=== PATIENT | female | born 1955 | race Caucasian/White ===

== ENCOUNTER 2018-01-19 10:16 | Emergency (ER) | payer OTHER ==
[2018-01-19 10:34] VITALS: BP 141/73
--- NOTE | 2018-01-19 12:35 | ED Physician Documentation ---
PD HPI HEAD INJURY - Stated complaint Stated Complaint: HEAD INJURY - Chief complaint Chief Complaint: Neuro - History obtained from History obtained from: Patient - History of Present Illness Where head injury occurred: Home Timing - onset: How many days ago (4) Pain level max: 6 Pain level now: 3 Location of injury: Left, Front Quality of pain: Pain, Aching, Dull Associated symptoms: Nausea / vomiting (nausea no vomiting). No: LOC, AMS, Amnesia Symptoms improve with: Rest Symptoms worsen with: Movement Contributing factors: No: Anticoagulated, Intoxicated Similar symptoms before: Has not had sx before Recently seen: Not recently seen - Additional information Additional information: Patient is a 62-year-old female who takes no medications at home who stood up and hit her head on a beam in the attic 4 days ago. Since that time she has had increasing headaches, nausea and lightheadedness. She states that it seems to be worse every day since that the injury occurred. Review of Systems Constitutional: denies: Fever, Chills Ears: denies: Ear pain Nose: denies: Rhinorrhea / runny nose, Congestion Throat: denies: Sore throat Cardiac: denies: Chest pain / pressure Respiratory: denies: Cough GI: denies: Nausea, Vomiting, Diarrhea Skin: denies: Rash Musculoskeletal: denies: Neck pain, Back pain Neurologic: denies: Headache PD PAST MEDICAL HISTORY - Past Medical History Past Medical History: No - Past Surgical History Past Surgical History: No - Present Medications Home Medications: Ambulatory Orders Medication Instructions Recorded Confirmed No Known Home Medications 01/19/18 01/19/18 - Allergies Allergies/Adverse Reactions: Allergies Allergy/AdvReac Type Severity Reaction Status Date / Time No Known Drug Allergies Allergy Verified 01/19/18 10:34 - Living Situation Living Situation: reports: With family Living Arrangement: reports: At home - Social History Does the pt have substance abuse?: No - Family History Family history: reports: Non contributory PD ED PE NORMAL - Vitals Vital signs reviewed: Yes - General General: Alert and oriented X 3, No acute distress, Well developed/nourished - HEENT HEENT: Atraumatic, PERRL, EOMI, Ears normal, Moist mucous membranes, Pharynx benign - Neck Neck: Supple, no meningeal sign, No bony TTP - Cardiac Cardiac: RRR - Respiratory Respiratory: No respiratory distress, Clear bilaterally - Abdomen Abdomen: Soft, Non tender, Non distended - Back Back: No spinal TTP - Derm Derm: Warm and dry - Extremities Extremities: Normal ROM s pain - Neuro Neuro: Alert and oriented X 3, business intern 2-12 intact, No motor deficit, No sensory deficit, Normal speech Eye Opening: Spontaneous Motor: Obeys Commands Verbal: Oriented GCS Score: 15 - Psych Psych: Normal mood, Normal affect Results - Vitals Vitals: Vital Signs - 24 hr 01/19/18 10:30 Temperature 35.8 C L Heart Rate 69 Respiratory 15 Rate Blood Pressure 141/73 H O2 Saturation 99 Oxygen O2 Source Room air - Rads (name of study) head Ct Radiology: Prelim report reviewed, EMP read contemporaneously, See rad report (No acute intracranial abnormality) PD MEDICAL DECISION MAKING - ED course Complexity details: reviewed results, re-evaluated patient, considered differential, d/w patient ED course: Patient is a 62-year-old female who struck her head on a beam in her attic several days ago, worsening symptoms since that time. As her symptoms are progressively worsening, head CT performed which is negative. Will continue supportive care for a closed head injury and follow-up closely with her doctor. No seizures or vomiting at this time patient counseled regarding signs and symptoms for which I believe and urgent re-evaluation would be necessary. Patient with good understanding of and agreement to plan and is comfortable going home at this time This document was made in part using voice recognition software. While efforts are made to proofread this document, sound alike and grammatical errors may occur. Departure - Departure Disposition: 01 Home, Self Care Clinical Impression: Head injury Qualifiers: Encounter type: initial encounter Qualified Code(s): S09.90XA - Unspecified injury of head, initial encounter Condition: Good Instructions: ED Head Injury Closed Follow-Up: your,doctor in 1 week for recheck [Other] Comments: Your CT scan is normal today. Return if you worsen. You should not drive or operate heavy machinery while you are feeling dizzy and having headaches. Follow-up with your doctor next week for repeat evaluation. Discharge Date/Time: 01/19/18 13:05
--- NOTE | 2018-01-19 13:05 | CT Report ---
Reason: head injury 3 days ago, nausea Procedure Date: 01/19/2018 Accession Number: [id number] / [id number] Procedure: CT - Head W/O CPT Code: FULL RESULT: EXAM: CT HEAD EXAM DATE: 01/19/2018 12:46 PM. CLINICAL HISTORY: Head injury 3 days ago, nausea. COMPARISON: None. TECHNIQUE: Multiaxial CT images were obtained from the foramen magnum to the vertex. Reformats: Sagittal and coronal. IV contrast: None. In accordance with CT protocol optimization, one or more of the following dose reduction techniques were utilized for this exam: automated exposure control, adjustment of mA and/or KV based on patient size, or use of iterative reconstructive technique. FINDINGS: Parenchyma: No intraparenchymal hemorrhage. No evidence of mass, midline shift, or CT findings of infarction. Reyes-white differentiation is distinct. Extraaxial Spaces: Normal for age. No subdural or epidural collections identified. Ventricles: Normal in size and position. Sinuses and Orbits: Imaged paranasal sinuses, orbits, and mastoids show no significant abnormality. Bones: No evidence of fracture or calvarial defect. Other: None. IMPRESSION: No acute intracranial abnormality. RADIA
== END 2018-01-19 13:05 | disposition home or self-care (01) ==
LOC: ED 10:16
DX: S09.90XA Unspecified injury of head, initial encounter (principal); W22.09XA Striking against other stationary object, initial encounter; Y92.008 Other place in unspecified non-institutional (private) residence as the place of occurrence of the external cause
CPT/HCPCS: 70450; 99283

== ENCOUNTER 2019-04-06 14:12 | Outpatient (CLI) | payer MEDICARE ==
--- NOTE | 2019-04-06 15:54 | Ultrasound Report ---
Reason: ABNL FINDING ON EXAMINATION OF THYROID GLAND Procedure Date: 04/06/2019 Accession Number: [id number] / [id number] Procedure: US - Head or Neck Soft Tissue CPT Code: Final Report FULL RESULT: EXAM: THYROID ULTRASOUND EXAM DATE: 04/06/2019 03:16 PM. CLINICAL HISTORY: ABNL FINDING ON EXAMINATION OF THYROID GLAND. COMPARISON: None. TECHNIQUE: Real time sonographic imaging of the thyroid was performed by the med asst. Multiple billing customer service representative static images were saved for review. FINDINGS: THYROID GLAND: Right Lobe: 4.7 x 1.1 x 1.4 cm, volume 3.8 cc. Heterogeneous Right Lobe Nodules: 1. Superior pole heterogeneous 0.5 x 0.4 x 0.6 cm noncalcified nodule. 2. Inferior pole echogenic 0.6 x 0.4 x 0.4 cm noncalcified nodule. Multiple small cysts Left Lobe: 4.9 x 1.7 x 1.3 cm, volume 5.6 cc. Heterogeneous Left Lobe Nodules: 1. Mid pole 0.4 x 0.2 x 0.2 cyst. 2. Mid heterogeneous 0.7 x 0.4 x 0.8 cm noncalcified nodule. 3. Lower pole hypoechoic 0.4 x 0.3 x 0.4 cm noncalcified nodule Other small cysts. Isthmus: 0.26 cm AP. Isthmic Nodules: None. LYMPH NODES: No adenopathy demonstrated in the central or lateral compartment. OTHER: None. IMPRESSION: 1. Bilateral small nodules largest 8 mm left lobe. Follow-up can be in 12-24 months Management recommendations are based on 2015 [place] [employer] Management Guidelines for Adult Patients with Thyroid Nodules and Differentiated Thyroid Cancer. RADIA
--- NOTE | 2019-04-07 09:01 | DEXA Report ---
Reason: OSTEOPOROSIS SCREENING Procedure Date: 04/06/2019 Accession Number: [id number] / [id number] Procedure: DEX - Dexa Spine and/or Hip CPT Code: Final Report FULL RESULT: EXAM: Dexa Spine and/or Hip DATE: 04/06/2019 2:40 PM CLINICAL HISTORY: OSTEOPOROSIS SCREENING TECHNIQUE: Dual energy x-ray absorptiometry (DXA) was performed on a MMIS System. Regions measured are the AP Spine, femoral neck, and if needed forearm. COMPARISON: None. In accordance with the International Society for Clinical Densitometry (ISCD) guidelines, data from previous exams may be reanalyzed using current recommendations and techniques. This is done to allow a more accurate basis for comparison with the current study. FINDINGS: The data for the lumbar spine is as follows: BMD (g/cm/cm) T-SCORE Z-SCORE REGION L1 1.158 0.2 2.0 L2 1.185 -0.1 1.6 L3 1.312 0.9 2.7 L4 1.298 0.8 2.6 TOTAL 1.243 0.5 2.3 NOTE: All evaluable vertebrae are used for classification The data for the hip is as follows: BMD (g/cm/cm) T-SCORE Z-SCORE REGION Neck 0.909 -0.9 0.6 TOTAL 0.956 -0.4 0.9 NOTE: The femoral neck or total proximal femur, whichever is lowest, is used for classification. IMPRESSION: THE WHO CLASSIFICATION BASED ON THE INTERNATIONAL REFERENCE STANDARD IS NORMAL. THE FRACTURE RISK IS NOT INCREASED. RECOMMENDATION: Patients with diagnosis of osteoporosis or osteopenia should have regular bone mineral density assessment. For those eligible for Medicare, routine testing is allowed once every 2 years. Testing frequency can be increased for patients who have rapidly progressing disease or for those who are receiving medical therapy to restore bone mass. COMMENT: World Health Organization (WHO) definitions for osteoporosis and osteopenia: NORMAL BMD: T-score at -1.0 or higher, fracture risk is low OSTEOPENIA BMD: T-score between -1.0 and -2.5, fracture risk is increased. OSTEOPOROSIS BMD: T-score at -2.5 or lower, fracture risk is high. National Osteoporosis Foundation recommends: 1. Obtain adequate dietary calcium (at least 1200 mg per day) and vitamin D (400-800 international units per day). 2. Participate, as appropriate, in regular weightbearing and muscle-strengthening exercise. 3. Avoid tobacco use and reduce alcohol and caffeine intake. 4. For more detailed information see the website at www.NOF.org.
== END 2019-04-06 14:13 | disposition home or self-care (01) ==
LOC: DI 14:12
PROVIDERS: ATTEND Internal Medicine
DX: Z78.0 Asymptomatic menopausal state (principal); E04.2 Nontoxic multinodular goiter
CPT/HCPCS: 76536; 77080

== ENCOUNTER 2019-04-07 08:29 | Outpatient (CLI) | payer MEDICARE ==
[2019-04-07 08:55] LABS: EOSINOPHILS # (AUTO) 0.1 10^3/uL (0.0-0.7); EOSINOPHILS % (AUTO) 2.2 %; HGB - HEMOGLOBIN 15.3 g/dL (12.0-16.0); LYMPHOCYTES # (AUTO) 1.7 10^3/uL (1.5-3.5); LYMPHOCYTES % (AUTO) 41.5 %; MEAN CORPUSCULAR HGB CONC 33.7 g/dL (32.0-36.0); MEAN CORPUSCULAR VOLUME 91.9 fL (81.0-99.0); MEAN PLATELET VOLUME 9.3 fL (7.9-10.8); MONOCYTES # (AUTO) 0.3 10^3/uL (0.0-1.0); NEUTROPHILS # (AUTO) 1.9 10^3/uL (1.5-6.6); NEUTROPHILS % (AUTO) 47.1 %; PLT - PLATELET COUNT 192 10^3/uL (130-450); RED BLOOD COUNT 4.94 10^6/uL (4.20-5.40); WHITE BLOOD COUNT 4.1 x10^3/uL (4.8-10.8)
[2019-04-07 09:09] LABS: HB2 TOTAL 15.2 g/dL; HEMOGLOBIN A1C 0.69 g/dL; HEMOGLOBIN A1C % 6.3 % (4.6-6.2)
[2019-04-07 09:44] LABS: ALBUMIN 4.4 g/dL (3.2-5.5); ALBUMIN/GLOBULIN RATIO 1.5 (1.0-2.2); ALKALINE PHOSPHATASE 57 IU/L (42-121); ALT ALANINE AMINOTRANSFERASE 56 IU/L (10-60); AST ASPARTATE AMINOTRANSFERASE 34 IU/L (10-42); BILIRUBIN,TOTAL 0.9 mg/dL (0.2-1.0); BUN - BLOOD UREA NITROGEN 16 mg/dL (6-20); CALCIUM 9.1 mg/dL (8.5-10.3); CARBON DIOXIDE - CO2 29 mmol/L (21-32); CHLORIDE 101 mmol/L (101-111); CHOL/HDL RATIO 3.9 (<4.4); CHOLESTEROL 287 mg/dL; CREATININE 0.8 mg/dL (0.4-1.0); CRP - C-REACTIVE PROTEIN < 1.0 mg/dL (0-1.0); GAMMA GLUTAMYL TRANSPEPTIDASE 41 IU/L (8-38); GFR - MDRD 72 (>89); GLUCOSE 125 mg/dL (70-100); HDL CHOLESTEROL 73 mg/dL; LDL CHOLESTEROL,CALCULATED 197 mg/dL; LDL/HDL RATIO 2.7 (<4.4); SODIUM 139 mmol/L (135-145); TOTAL PROTEIN 7.3 g/dL (6.7-8.2); VLDL CHOLESTEROL 17 mg/dL
[2019-04-07 09:49] LABS: BILIRUBIN,URINE NEGATIVE (NEGATIVE); GLUCOSE, URINE (UA) NEGATIVE (NEGATIVE); KETONES,URINE (UA) NEGATIVE (NEGATIVE); LEUKOCYTE ESTERASE, URINE NEGATIVE (NEGATIVE); NITRITE,URINE NEGATIVE (NEGATIVE); OCCULT BLOOD,URINE TRACE-INTA (NEGATIVE); PH,URINE 5.5 PH (5.0-7.5); PROTEIN,URINE NEGATIVE (NEGATIVE); UROBILINOGEN,URINE 0.2 (NORMAL) E.U./dL (NORMAL)
[2019-04-07 09:50] LABS: CLARITY,URINE CLEAR (CLEAR)
[2019-04-07 09:52] LABS: T4 (THYROXINE) 5.39 ug/dL (6.09-12.23)
[2019-04-07 10:00] LABS: BACTERIA,URINE Rare /HPF (None Seen); RBC,URINE 0-5 /HPF (0-5); SQUAMOUS EPITHELIAL CELL,UR RARE Squamous (<= Few)
[2019-04-07 10:02] LABS: TOTAL T3 1.14 ng/mL (0.87-1.78)
== END 2019-04-07 08:30 | disposition home or self-care (01) ==
LOC: LAB 08:29
PROVIDERS: ATTEND Internal Medicine
DX: Z13.220 Encounter for screening for lipoid disorders (principal); R10.84 Generalized abdominal pain; R74.0 Nonspecific elevation of levels of transaminase and lactic acid dehydrogenase [LDH]; R11.0 Nausea; R53.82 Chronic fatigue, unspecified; R73.9 Hyperglycemia, unspecified
CPT/HCPCS: 36415; 80053; 80061; 81001; 81599; 82977; 83036; 83516; 83721; 84436; 84443; 84480; 85025; 85651; 86140; 86376

== ENCOUNTER 2020-12-03 08:14 | Outpatient (CLI) | payer MEDICARE | END 2020-12-03 08:15 | disposition home or self-care (01) | LOC: LAB 08:14 | PROVIDERS: ATTEND Internal Medicine Cardiovascular Disease | DX: R07.81 Pleurodynia (principal) | CPT/HCPCS: 36415; 85651; 86140 ==

== ENCOUNTER 2021-04-01 10:45 | Outpatient (CLI) | payer OTHER ==
--- NOTE | 2021-04-01 12:48 | CT Report ---
PROCEDURE: CHEST WO INDICATIONS: COUGH TECHNIQUE: Noncontrast 1mm axial images were acquired from the pulmonary apices to the posterior costophrenic an gles. Axial 5 mm soft tissue kernel reconstructions were performed as well as 8 mm axial MIP and cor onal and sagittal 5 mm reformations. For radiation dose reduction, the following was used: automate d exposure control, adjustment of mA and/or kV according to patient size. COMPARISON: None. FINDINGS: Image quality: Excellent. Lungs and pleura: No acute air space opacities. Scattered areas of mild bronchial wall thickening ar e seen throughout both lungs without significant bronchiectasis. No pleural effusions or pneumothorax . Central and peripheral airways are patent and normal in caliber. Mediastinum: Heart size is normal. No pericardial effusion. No mediastinal adenopathy by size crit eria. Thoracic aorta and central pulmonary arteries are normal in size. Esophagus is normal in marcus saravanan. No hiatal hernia. Bones and chest wall: No suspicious bony lesions. No vertebral body compression fractures. No axil chevy or supraclavicular adenopathy by size criteria. The thyroid is normal in size. Abdomen: Visualized upper abdominal solid organs and bowel loops appear normal in the absence of con trast. IMPRESSION: Scattered mild areas of bronchial wall thickening are nonspecific secondary to acute or chronic infec tious or inflammatory processes or reactive airways disease. No acute consolidation. Reviewed by: Paulo Garza MD on 04/01/2021 12:47 PM PST Approved by: Paulo Garza MD on 04/01/2021 12:47 PM PST Station ID: [id number]
== END 2021-04-01 10:46 | disposition home or self-care (01) ==
LOC: DI 10:45
PROVIDERS: ATTEND Internal Medicine Pulmonary Disease
DX: R05.9 Cough, unspecified (principal); J98.09 Other diseases of bronchus, not elsewhere classified

== ENCOUNTER 2021-07-06 18:08 | Emergency (ER) | payer MEDICARE, OTHER ==
[2021-07-06 18:17] VITALS: BP 147/71
--- NOTE | 2021-07-06 18:51 | XRAY Report ---
PROCEDURE: Ankle 3 View RT INDICATIONS: PAIN/TENDERNESS/SWELLING R ANKLE TECHNIQUE: 3 views of the ankle were acquired. COMPARISON: None. FINDINGS: BONES: Faint calcific density is seen distal to the lateral malleolus, concerning for small avulsion fracture. An additional calcific densities seen distal to the medial malleolus, compatible with salome te injury. The ankle mortise is maintained on these nonstressed views. SOFT TISSUES: Lateral soft tissue swelling. IMPRESSION: 1.Suggestion of lateral malleolus avulsion injury with soft tissue edema. Reviewed by: Robert Noble MD on 07/06/2021 6:49 PM PDT Approved by: Robert Noble MD on 07/06/2021 6:49 PM PDT Station ID: [id number]
--- NOTE | 2021-07-06 19:29 | XRAY Report ---
PROCEDURE: Foot 3 View RT INDICATIONS: fall, foot pain TECHNIQUE: 3 views of the foot were acquired. COMPARISON: None. FINDINGS: BONES: No acute, displaced fracture or dislocation. Mild osteophytosis about the first MTP. SOFT TISSUES: No focal abnormality. IMPRESSION: 1.No acute osseous abnormality. Reviewed by: Robert Noble MD on 07/06/2021 7:28 PM PDT Approved by: Robert Noble MD on 07/06/2021 7:28 PM PDT Station ID: [id number]
--- NOTE | 2021-07-06 19:31 | ED Physician Documentation ---
History of Present Illness - Stated complaint Stated Complaint: FALL,ANKLE PX - Chief complaint Chief Complaint: Ext Problem - History obtained from History obtained from: Patient, Family - History of Present Illness Timing: Today Pain level max: 6 Pain level now: 3 - Additonal information Additional information: Patient is a 66-year-old female who presents to the emergency department with a right ankle injury after walking on the beach today. She states that she slipped and fell off of logs. Occurred about an hour prior to arrival. Has swelling to the right lateral ankle. Worse with walking, better with rest. Patient states that she also fell and injured her tailbone. She states that pain is mild. Most of the pain is in the right ankle. No head, neck, back pain. Does not take any blood thinners. Review of Systems Constitutional: denies: Fever, Chills GI: denies: Vomiting, Diarrhea Skin: denies: Rash Musculoskeletal: denies: Neck pain, Back pain Neurologic: denies: Focal weakness, Numbness, Seizure, Confused, Headache, Head injury, LOC PD PAST MEDICAL HISTORY - Past Medical History Past Medical History: No - Past Surgical History Past Surgical History: No - Present Medications Home Medications: Ambulatory Orders Medication Instructions Recorded Confirmed No Known Home Medications 01/19/18 07/06/21 - Allergies Allergies/Adverse Reactions: Allergies Allergy/AdvReac Type Severity Reaction Status Date / Time No Known Drug Allergies Allergy Verified 07/06/21 18:17 - Social History Does the pt smoke?: No Smoking Status: Never smoker Does the pt drink ETOH?: Yes ETOH Use: Wine Does the pt have substance abuse?: No - Immunizations Immunizations are current?: Yes - POLST Patient has POLST: No PD ED PE NORMAL - Vitals Vital signs reviewed: Yes - General General: Alert and oriented X 3, No acute distress - HEENT HEENT: Atraumatic, PERRL, Moist mucous membranes - Neck Neck: Supple, no meningeal sign, No bony TTP - Cardiac Cardiac: RRR - Respiratory Respiratory: No respiratory distress, Clear bilaterally - Back Back: No spinal TTP - Derm Derm: Warm and dry - Extremities Extremities: Other (Soft tissue swelling and ecchymosis to the lateral aspect of the right ankle, tenderness to palpation over the right lateral malleolus. Mild swelling near the base of the fifth metatarsal as well. NVI) - Neuro Neuro: Alert and oriented X 3 - Psych Psych: Normal mood, Normal affect Results - Vitals Vitals: Vital Signs - 24 hr 07/06/21 18:15 Temperature 36.7 C Heart Rate 78 Respiratory 16 Rate Blood Pressure 147/71 H O2 Saturation 100 Oxygen O2 Source Room air - Rads (name of study) Right ankle x-ray Radiology: Final report received, EMP read contemporaneously, See rad report (Possible small avulsion fracture distal aspect of the lateral malleolus) Right foot x-ray Radiology: Final report received, EMP read contemporaneously, See rad report (Possible small avulsion fracture distal aspect of the lateral malleolus) Procedures - Splint (location) Right lower extremity Splint applied by: Physician, Tech Type of splint: Short leg, Posterior Other: Patient tolerated well, No complications, Neurovascular intact, Crutches provided PD MEDICAL DECISION MAKING - ED course Complexity details: reviewed results, re-evaluated patient, considered differential, d/w patient, d/w family ED course: 66-year-old female presents with a right ankle sprain versus small avulsion fracture off the distal tip of the fibula. Placed in a short leg posterior splint and given crutches. Patient declines pain medication here or for home. We will have her follow-up with orthopedics for further care. No indication for emergent imaging of the coccyx. No head, neck, back pain. Patient counseled regarding signs and symptoms for which I believe and urgent re-evaluation would be necessary. Patient with good understanding of and agreement to plan and is comfortable going home at this time This document was made in part using voice recognition software. While efforts are made to proofread this document, sound alike and grammatical errors may occur. Departure - Departure Disposition: 01 Home, Self Care Clinical Impression: Avulsion fracture of lateral malleolus Qualifiers: Encounter type: initial encounter Fracture type: closed Laterality: right Qualified Code(s): S82.61XA - Displaced fracture of lateral malleolus of right fibula, initial encounter for closed fracture Condition: Good Instructions: ED Fx Lower Ext Follow-Up: [facility] [Provider Group] - Within 1 week Comments: Please follow-up with orthopedics for further care. Please return if you worsen. Stay in the splint and be nonweightbearing on the right lower extremity until cleared by orthopedics. You can use Motrin or Tylenol as needed for pain. Discharge Date/Time: 07/06/21 20:10
== END 2021-07-06 20:10 | disposition home or self-care (01) ==
LOC: ED 18:08
DX: S82.61XA Displaced fracture of lateral malleolus of right fibula, initial encounter for closed fracture (principal); W01.0XXA Fall on same level from slipping, tripping and stumbling without subsequent striking against object, initial encounter; Y93.01 Activity, walking, marching and hiking; Y92.832 Beach as the place of occurrence of the external cause
CPT/HCPCS: 29515; 99284

== ENCOUNTER 2021-07-18 09:31 | Emergency (ER) | payer MEDICARE, OTHER ==
[2021-07-18 09:41] VITALS: BP 165/78
--- NOTE | 2021-07-18 10:14 | ED Physician Documentation ---
PD HPI LOWER EXT INJURY - Stated complaint Stated Complaint: RT LEG PX - Chief complaint Chief Complaint: Ext Problem - History obtained from History obtained from: Patient, Family - History of Present Illness PD HPI LOW EXT INJURY LOCATION: Right, Ankle Type of injury: Fall, Twist Where injury occurred: Other (beach) Timing - onset: How many days ago (12) Timing - duration: Days (12) Timing - details: Abrupt onset, Still present Improved by: Rest, Immobilization Worsened by: Moving, Palpating Associated symptoms: Numbness, Tingling, Swelling, Discolored. No: Weakness Contributing factors: No: Anticoagulated Similar symptoms before: Has not had sx before Recently seen: Clinic, Emergency Dept - Additional information Additional information: 66-year-old female had a fall on the beach twisting her ankle and landing on the lateral aspect of the right ankle. This happened on Wednesday nearly 12 days ago. She was seen in the emergency department and she was placed into a posterior splint with an avulsion fracture of the distal fibula. She has subsequently had significant swelling to the leg from the calf down and this has actually resolved. She has some redness over the lateral aspect of the ankle and areas of skin breakdown. She was concerned about infection went into see someone at the walk-in clinic and was prescribed some antibiotics which she has not taken as the provider did not feel she had infection. The patient is concerned about blood clots and she notes that the discoloration and swelling for the leg in general has mostly resolved. She has some numbness to the top of her foot and toes with the skin stretched from swelling. She does not have any lymphangitic streaking she has not had a fever. She does have pain in her tailbone and wants to have that x-rayed. She had the pain when she fell and this was well localized at the time seems to be expanding in its size. Review of Systems Constitutional: denies: Fever Respiratory: denies: Cough GI: denies: Vomiting, Constipation, Diarrhea : denies: Dysuria PD PAST MEDICAL HISTORY - Past Surgical History Past Surgical History: No - Present Medications Home Medications: Ambulatory Orders Medication Instructions Recorded Confirmed No Known Home Medications 01/19/18 07/06/21 - Allergies Allergies/Adverse Reactions: Allergies Allergy/AdvReac Type Severity Reaction Status Date / Time No Known Drug Allergies Allergy Verified 07/06/21 18:17 - Social History Does the pt smoke?: No Smoking Status: Never smoker Does the pt drink ETOH?: Yes Does the pt have substance abuse?: No - Immunizations Immunizations are current?: Yes - POLST Patient has POLST: No PD ED PE NORMAL - Vitals Vital signs reviewed: Yes (Hypertensive) - General General: Alert and oriented X 3, No acute distress, Well developed/nourished - HEENT HEENT: Atraumatic, PERRL, EOMI - Respiratory Respiratory: No respiratory distress - Derm Derm: Normal color, Warm and dry, No rash - Extremities Extremities: Other (Right lower extremity is slender without significant swelling and there is discoloration to the skin consistent with resolving subcutaneous hematoma. Over the lateral malleolus the skin has some early breakdown erythema and no drainage. There is no fluctuance. The skin is blanching.) - Neuro Neuro: Alert and oriented X 3, class a lineman 2-12 intact, No motor deficit, No sensory deficit, Normal speech Eye Opening: Spontaneous Motor: Obeys Commands Verbal: Oriented GCS Score: 15 - Psych Psych: Normal mood, Normal affect Results - Vitals Vitals: Vital Signs - 24 hr 07/18/21 09:36 Temperature 36.5 C Heart Rate 97 Respiratory 18 Rate Blood Pressure 165/78 H O2 Saturation 96 Oxygen O2 Source Room air - Rads (name of study) sacrum and coccyx Radiology: Prelim report reviewed (Impression: Finding is concerning for subtle acute fracture involving mid to distal coccyx. No other fracture or dislocation), EMP read indepedently, See rad report PD MEDICAL DECISION MAKING - ED course Complexity details: reviewed old records, reviewed results, re-evaluated patient, considered differential, d/w patient, d/w family ED course: 66-year-old Lin harrison has had a fall on the beach and has sprained her ankle with an avulsion fracture of the distal fibula. She has returned to the emergency department with a posterior splint in place and what appears to be some skin breakdown and superficial infection over an area where the body has poor blood supply. I have indicated the patient that if it is completely reasonable to take the antibiotic she has been prescribed and the expectation being that the redness will recede. I did discuss with the patient DVT and on exam it appears unlikely as her swelling has mostly resolved, the pain she is having in the back of the calf is where the splint is digging in to the popletial area. Departure - Departure Disposition: 01 Home, Self Care Clinical Impression: Superficial bacterial infection of skin Fractured coccyx Qualifiers: Encounter type: initial encounter Fracture type: closed Qualified Code(s): S32.2XXA - Fracture of coccyx, initial encounter for closed fracture Condition: Stable Instructions: ED Infec Skin Cellulitis, ED Fx Coccyx Follow-Up: Andrae Howell MD [Physician No Access] - Comments: Lin, it looks like you have sprained your ankle and this will likely take another week or so to resolve. The area of skin over the lateral aspect of your ankle appears to be superficially infected. This is an area of your body with poor blood supply to the skin and treatment when superficial infection is present is warranted. Start taking the antibiotic you were prescribed and follow-up with Dr. Howell as previously planned. The coccyx fracture is subtle and the treatment is symptomatic.
--- NOTE | 2021-07-18 11:07 | XRAY Report ---
PROCEDURE: Sacrum/Coccyx INDICATIONS: fall onto tailbone TECHNIQUE: 3 views of the sacrum and coccyx acquired. COMPARISON: None. FINDINGS: Bones: Acute anterior angulation at mid to distal coccyx is seen concerning for acute fracture in this area. . No other fracture or dislocation. No suspicious bony lesions. Soft tissues: Visualized bowel gas pattern is normal. No suspicious soft tissue densities. IMPRESSION: Finding is concerning for subtle acute fracture involving mid to distal coccyx. No other fracture or dislocation. Reviewed by: Thong Lamar MD on 07/18/2021 11:06 AM PDT Approved by: Thong Lamar MD on 07/18/2021 11:06 AM PDT Station ID: [id number]
== END 2021-07-18 11:38 | disposition home or self-care (01) ==
LOC: ED 09:31
DX: L08.89 Other specified local infections of the skin and subcutaneous tissue (principal); S32.2XXA Fracture of coccyx, initial encounter for closed fracture; W19.XXXA Unspecified fall, initial encounter; Y92.832 Beach as the place of occurrence of the external cause
CPT/HCPCS: 99282; 99283

== ENCOUNTER 2021-08-22 06:00 | Outpatient (CLI) | payer MEDICARE, OTHER ==
--- NOTE | 2021-08-22 14:47 | XRAY Report ---
PROCEDURE: Knee 4 View RT INDICATIONS: KNEE PAIN TECHNIQUE: 4 views of the right knee were acquired. COMPARISON: None. FINDINGS: Bones: No acute fractures or dislocations. No suspicious bony lesions. There is mild joint space n arrowing at the medial femorotibial compartment. The lateral and anterior compartment joint spaces ar e maintained. Soft tissues: No joint effusion. No suspicious soft tissue calcifications. IMPRESSION: 1.Mild medial compartment osteoarthrosis. 2.No acute osseous abnormality. If symptoms persist or there is continued clinical concern, further e valuation with MRI or CT may be helpful. Reviewed by: Paulo Garza MD on 08/22/2021 2:46 PM PDT Approved by: Paulo Garza MD on 08/22/2021 2:46 PM PDT Station ID: [id number]
== END 2021-08-22 23:59 | disposition home or self-care (01) ==
LOC: DI.WOS 06:00
PROVIDERS: ATTEND Physician Assistant Surgical
DX: S82.891A Other fracture of right lower leg, initial encounter for closed fracture (principal); M17.11 Unilateral primary osteoarthritis, right knee

== ENCOUNTER 2023-07-29 10:45 | Outpatient (CLI) | payer MEDICARE, OTHER | END 2023-07-29 10:46 | disposition home or self-care (01) | LOC: RT 10:45 | PROVIDERS: ATTEND Internal Medicine Pulmonary Disease | DX: R05.2 Subacute cough (principal) | CPT/HCPCS: 94010; 94727; 94729 ==